=== PATIENT | male | born 1955 | race Asian ===

== ENCOUNTER 2023-02-21 06:35 | Day surgery (SDC) | payer MEDICARE, OTHER ==
[~2023-02-21] VITALS: Ht 160 cm; Wt 63.6 kg
[2023-02-21] MEDS ORDERED: BENZOCAINE 20% 50 MCG/SPRAY 57 GM TP ONE (06:36)
[2023-02-21] MEDS ORDERED: LIDOCAINE 4% 50 ML SOLUTION TP ONE (06:36)
[2023-02-21] MEDS ORDERED: LIDOCAINE 2% 11 ML JELLY TP ONE (06:36)
[2023-02-21] MEDS ORDERED: SODIUM CHLORIDE 0.9% 1,000 ML IV ONE (07:00)
[2023-02-21] MEDS ORDERED: SODIUM CHLORIDE 0.9% 1,000 ML ONE (07:04)
[2023-02-21] MEDS ORDERED: FentaNYL CITRATE PF 100 MCG/2 ML VIAL ONE (08:27)
[2023-02-21] MEDS ORDERED: MIDAZOLAM HCL 2 MG/2 ML VIAL ONE (08:27)
[2023-02-21] MEDS ORDERED: MethylPREDNISolone SOD SUCC 125 MG/2 ML VIAL IVP ONE (09:45)
== END 2023-02-21 11:35 | disposition home or self-care (01) ==
LOC: SURGERY 06:35
PROVIDERS: ATTEND Internal Medicine Critical Care Medicine
DX: J38.4 Edema of larynx (principal); B37.0 Candidal stomatitis; Z79.899 Other long term (current) drug therapy; Z88.0 Allergy status to penicillin; Z95.5 Presence of coronary angioplasty implant and graft; J45.909 Unspecified asthma, uncomplicated; Z87.01 Personal history of pneumonia (recurrent); I25.2 Old myocardial infarction
CPT/HCPCS: 31623; 88112; 87206; 87101; 87220; 87015; 87070; 87186; 31624; 71045; 93005; J3010; J2250; J2930; Q9967; J7030; Z7610